=== PATIENT | female | born 1980 | race African-American/Black ===

== ENCOUNTER 2016-06-17 22:27 | Emergency (ER) | payer OTHER ==
[~2016-06-17] VITALS: Ht 154.9 cm; Wt 70.1 kg
[~2016-06-17 22:27] MED LIST: BENTYL10 MG PO; MOBIC7.5 MG PO; MOTRIN800 MG PO; NAPROSYN500 MG PO; PERCOCET 5/31 TABLET PO; TOBREX5 ML RIGHT EYE; ULTRACET1 TABLET PO
[2016-06-18] MEDS ORDERED: PERCOCET 5/31 TABLET PO (00:35)
[2016-06-18] MEDS ORDERED: MOTRIN800 MG PO (00:35)
[2016-06-18 00:53] VITALS: BP 116/72
== END 2016-06-18 01:02 | disposition home or self-care (01) ==
LOC: RME 22:27 → EME 22:27 → RME 06-18 01:02
DX: S83.91XA Sprain of unspecified site of right knee, initial encounter (principal); X50.1XXA Overexertion from prolonged static or awkward postures, initial encounter; Y93.51 Activity, roller skating (inline) and skateboarding; F17.200 Nicotine dependence, unspecified, uncomplicated
CPT/HCPCS: 73564; 99281; 99284

== ENCOUNTER → 2016-08-28 | Outpatient (CLI) | payer OTHER | END | disposition home or self-care (01) | LOC: CDC 09:36 | DX: Z01.810 Encounter for preprocedural cardiovascular examination (principal); S83.411D Sprain of medial collateral ligament of right knee, subsequent encounter; M23.601 Other spontaneous disruption of unspecified ligament of right knee; M25.561 Pain in right knee | CPT/HCPCS: 93000 ==

== ENCOUNTER 2017-10-24 12:25 | Emergency (ER) | payer OTHER ==
[~2017-10-24] VITALS: Ht 154.9 cm; Wt 74.0 kg
[2017-10-24] MEDS ORDERED: GABAPENTIN100 MG PO (12:46)
[2017-10-24] MEDS ORDERED: CYCLOBENZAPRINE10 MG PO (12:46)
[2017-10-24 13:54] LABS: APPEARANCE TURBID ((CLEAR)); BILIRUBIN NEGATIVE; BLOOD LARGE; GLUCOSE (STRIP) 50; KETONES NEGATIVE; LEUKOCYTES SMALL; NITRITE NEGATIVE; PROTEIN (STRIP) >=500; SPECIFIC GRAVITY 1.032 (1.000-1.030); UROBILINOGEN 0.2 MG/DL (0.2-1.0)
[2017-10-24 13:55] LABS: COLOR RED ((YELLOW))
[2017-10-24 14:07] VITALS: BP 111/78
[2017-10-24 14:12] LABS: EPITHELIAL CELLS 2+ /HPF; MUCUS NONE SEEN /LPF; RED BLOOD CELLS TNTC /HPF (0-5)
[2017-10-24 14:13] LABS: BACTERIA 1+ /HPF; UCUL ADDED? YES; WHITE BLOOD CELLS 15-20 /HPF (0-5)
[2017-10-24] MEDS ORDERED: LIDODERM 5% P1 PATCH TD (14:55)
[2017-10-24] MEDS ORDERED: PREDNISONE20 MG PO (14:55)
[2017-10-24] MEDS ORDERED: KEFLEX500 MG PO (14:55)
== END 2017-10-24 15:08 | disposition home or self-care (01) ==
LOC: EME 12:25
PROVIDERS: Nurse Practitioner Family
DX: N39.0 Urinary tract infection, site not specified (principal); M54.42 Lumbago with sciatica, left side; M54.41 Lumbago with sciatica, right side; F17.200 Nicotine dependence, unspecified, uncomplicated; Z87.39 Personal history of other diseases of the musculoskeletal system and connective tissue
CPT/HCPCS: 72100; 81003; 87086; 99281; 99285; J1885; J7512